=== PATIENT | female | born 1990 | race Caucasian/White ===

== ENCOUNTER 2024-03-15 14:09 | Outpatient (CLI) | payer OTHER, SELFPAY | END 2024-03-15 14:10 | disposition home or self-care (01) | LOC: NFLDREF 03-17 06:52 | PROVIDERS: Visit Provider Physician Assistant | DX: R30.0 Dysuria (principal); N89.8 Other specified noninflammatory disorders of vagina; R10.2 Pelvic and perineal pain; Z13.9 Encounter for screening, unspecified | CPT/HCPCS: 87086; 87186 ==

== ENCOUNTER 2024-03-25 07:11 | Outpatient (CLI) | payer OTHER, SELFPAY ==
--- NOTE | 2024-03-25 07:15 | CRLHL7_ITS ---
For Patients: As a result of the Century Cures Act, medical imaging exams and procedure reports are released immediately into your electronic medical record. You may view this report before your referring provider. If you have questions, please contact your health care provider. CLINICAL HISTORY: Pelvic pain, dysmenorrhea TECHNIQUE: 2D art scale ultrasound. In addition color Doppler and spectral Doppler analysis was performed of the pelvis using a transabdominal and transvaginal approach. FINDINGS: The myometrium has a normal uniform echotexture. The uterus measures 8.6 x 4.1 x 4.7 cm. The endometrial lining measures 7.2 mm in composite thickness. The right ovary measures 3.2 x 1.7 x 2.2 cm in size and the left ovary measures 3.2 x 1.9 x 2.8 cm. The ovaries demonstrate normal arterial and venous blood flow on color Doppler and spectral Doppler analysis. There are no suspicious fluid collections within the cul-de-sac. IMPRESSION: Normal ovaries. No torsion or adnexal mass. Endometrial thickness 7.2 millimeters. Dictated by Marco Antonio Lo MD @ 03/26/2024 6:25:03 AM (Electronically Signed)
== END 2024-03-25 07:12 | disposition home or self-care (01) ==
PROVIDERS: Visit Provider Physician Assistant
DX: R10.2 Pelvic and perineal pain (principal); R93.89 Abnormal findings on diagnostic imaging of other specified body structures; N94.6 Dysmenorrhea, unspecified
CPT/HCPCS: 76830; 76856; 93976